=== PATIENT | female | born 2000 | race African-American/Black ===

== ENCOUNTER 2018-07-11 21:59 | Emergency (ER) | payer SELFPAY ==
[2018-07-11] MEDS ORDERED: ONDANSETRON *ODT* 4 MG TABLET SL ONE (22:08)
--- NOTE | 2018-07-11 22:08 | PDOC ---
History of Present Illness - History of Present Illness Initial Comments: 07/11/18 22:40 The patient is a 17 year old female with no significant past medical history who presents to the ER with nausea for the past two week.s The patient states she recently came from [place] and is slowly adjusting to a new diet. Patient denies taking any medications for her symptoms. Patient is currently on control. The patient denies chest pain, shortness of breath, headache, and dizziness. Denies fever, chills, vomit, diarrhea, and constipation. Denies dysuria, frequency, urgency, and hematuria. Allergies: NKA Past surgical history: None reported. Social history: No reported alcohol, drug, or cigarette use. Adult ROS General: No fevers or chills, no weakness, no weight loss HEENT: No change in vision. No sore throat,. No ear pain CardioVascular: No chest pain or shortness of breath Respiratory:No cough, or wheezing. Gastrointestinal: (+) Nausea. No vomiting, diarrhea or constipation, No rectal bleeding Genitourinary: No dysuria, hematuria, or frequency Musculoskeletal: No joint or muscle pain or swelling Neurologic: No headache, vertigo, dizziness or loss of consciousness Psychiatric: nor depression Skin: No rashes or easy bruising Endocrine: no increased thirst or abnormal weight change Allergic: no skin or latex allergy All other systems reviewed and normal Adult Exam: General: Well-nourished well-developed individual, no acute distress HEENT: Throat: Normal, tonsils normal, no erythema or exudate Neck: Supple, no meningeal signs, no lymphadenopathy Eyes::Pupils equal reactive and round, extraocular motion intact Chest: Nontender to palpation Cardiac: S1-S2 normal, regular rate and rhythm, no murmurs rubs or gallops Respiratory: Lungs clear to auscultation bilateral Abdomen: Soft, nondistended, normal bowel sounds, nontender to palpation diffusely Extremities: Warm, dry, no cyanosis, clubbing, or edema Skin: No rashes Neuro: Alert and oriented x3, nonfocal exam, grossly intact, normal gait Psych: Normal mood and affect <Twyla Giraldo - Last Filed: 07/11/18 22:40> - General History Source: Patient Exam Limitations: No Limitations <Maria Del Rosario Blake I - Last Filed: 07/11/18 22:42> - General Chief Complaint: Nausea Stated Complaint: NAUSEA X 2 WEEKS Time Seen by Provider: 07/11/18 22:07 Past History <Twyla Giraldo - Last Filed: 07/11/18 22:40> <Maria Del Rosario Blake I - Last Filed: 07/11/18 22:42> - Past Medical History Allergies/Adverse Reactions: Allergies Allergy/AdvReac Type Severity Reaction Status Date / Time No Known Allergies Allergy Verified 07/11/18 22:01 Home Medications: Ambulatory Orders Ondansetron [Zofran Odt -] 4 mg SL TID PRN #21 od.tablet 07/11/18 *Physical Exam - Vital Signs Last Vital Signs Temp Pulse Resp BP Pulse Ox 98.3 F 102 H 16 125/93 100 07/11/18 22:06 07/11/18 22:06 07/11/18 22:06 07/11/18 22:06 07/11/18 22:06 <Twyla Giraldo - Last Filed: 07/11/18 22:40> ED Treatment Course - ADDITIONAL ORDERS Additional order review: Laboratory Results 07/11/18 22:15 Urine HCG, Qual Negative - Medications Given in the ED: ED Medications Discontinued Medications Generic Name Dose Route Start Last Admin Trade Name Freq PRN Reason Stop Dose Admin Ondansetron HCl 8 mg 07/11/18 22:08 07/11/18 22:17 Zofran Odt - SL 07/11/18 22:09 8 mg ONCE ONE Administration <Twyla Giraldo - Last Filed: 07/11/18 22:40> *DC/Admit/Observation/Transfer <Twyla Giraldo - Last Filed: 07/11/18 22:40> - Discharge Dispostion Decision to Admit order: No <Maria Del Rosario Blake I - Last Filed: 07/11/18 22:42> Diagnosis at time of Disposition: Nausea - Discharge Dispostion Disposition: HOME Condition at time of disposition: Stable - Prescriptions Prescriptions: Ondansetron [Zofran Odt -] 4 mg SL TID PRN #21 od.tablet PRN Reason: Nausea - Patient Instructions Additional Instructions: For the nausea you can take Zofran 1 tablet as often as 3 times a day. I sent a prescription to your pharmacy for the Zofran. Return to the emergency department immediately with ANY new, persistent or worsening symptoms. Continue any medications as previously prescribed by your physician. You should follow up with your primary doctor as soon as possible regarding today's emergency department visit. . Please make sure your doctor reviews the results of your emergency evaluation. Thank you for coming to the Emergency Department today for your care. It was a pleasure to see you today. Please note that your evaluation is INCOMPLETE until you follow-up with your doctor.
[2018-07-11 22:10] VITALS: BP 125/93; PULSE 102; TEMP 98.3; BMI 19.5
[2018-07-11] MEDS ORDERED: ONDANSETRON *ODT* 4 MG TABLET ONE (22:15)
== END 2018-07-11 22:48 | disposition home or self-care (01) ==
LOC: FER 21:59
DX: R11.0 Nausea (principal)
CPT/HCPCS: 84703; 99281-25; Q0162